=== PATIENT | male | born 1980 | race Caucasian/White ===

== ENCOUNTER 2025-04-22 07:47 | Inpatient (IN) | payer SELFPAY ==
[~2025-04-22] VITALS: Ht 175.3 cm; Wt 68.9 kg
[2025-04-22] VITALS (8 sets, daily range): BP systolic 114–129; BP diastolic 63–87; PULSE 69–86; RESP 0–15; TEMP 36.3–36.9; O2SAT 97–100
[2025-04-22] MEDS: ONDANSETRON HCL 4MG/2ML INJ IV ONE (08:32)
[2025-04-22] MEDS: MORPHINE SULFATE 4 MG/ML INJ (FOR IV/IM USE) IV ONE (08:33)
[2025-04-22] MEDS: LACTATED RINGERS 1,000 ML IV SCH (08:33)
[2025-04-22 08:35] LABS: HEMATOCRIT. 48.8 % (42.0-52.0); HEMOGLOBIN. 17.0 g/dL (14.0-18.0); MEAN PLATELET VOLUME 9.2 fl (7.4-10.4); PLATELET 298 x1000/uL (130-400); RED BLOOD CELL COUNT 5.73 mill/uL (4.7-6.1); RED CELL DISTRIBUTION WIDTH 12.9 % (11.6-14.6)
[2025-04-22 08:56] LABS: CREATININE 1.1 mg/dL (0.6-1.3)
[2025-04-22 08:57] LABS: UREA NITROGEN BLOOD 7 mg/dL (9-23)
[2025-04-22 08:58] LABS: ASPARTATE AMINOTRANSFERASE 17 IU/L (<34)
[2025-04-22 08:59] LABS: BILIRUBIN DIRECT 0.2 mg/dL (<=3.0); BILIRUBIN TOTAL 0.9 mg/dL (0.1-1.0); PROTEIN TOTAL 6.7 g/dL (6.0-8.3)
[2025-04-22 09:51] LABS: BAND% 27.0 % (1.0-6.0); EOSINOPHILS % MANUAL 1.0 % (0.0-5.0); LYMPHOCYTES % MANUAL 15.0 % (20.0-50.0); MONOCYTES % MANUAL 23.0 % (2.0-8.0); NEUTROPHILS % MANUAL 34.0 % (45.0-75.0)
[2025-04-22 09:52] LABS: PLATELET ESTIMATE NORMAL
[2025-04-22 09:58] LABS: TROPONIN I HIGH SENSITIVITY < 4 ng/L (3.0-53)
[2025-04-22] MEDS: ASPIRIN 325MG TABLET PO ONE (10:06)
[2025-04-22] MEDS: POTASSIUM CHLORIDE 20MEQ/PACKET PO ONE (10:06)
[2025-04-22] MEDS: KCL 20MEQ/100ML PREMIX 100 ML IV SCH ×2 (10:07→16:45)
[2025-04-22] MEDS ORDERED: IOHEXOL-300 100 ML BOTTLE ONE (10:50)
[2025-04-22] MEDS: MAGNESIUM 2 G PREMIX 50 ML IV ONE (11:09)
[2025-04-22 11:33] LABS: CLARITY URINE CLEAR (CLEAR); COLOR URINE YELLOW (YELLOW); GLUCOSE URINE NEGATIVE (NEGATIVE); KETONES URINE TRACE (NEGATIVE); LEUKOCYTE ESTERASE URINE NEGATIVE (NEGATIVE); NITRITE URINE NEGATIVE (NEGATIVE); OCCULT BLOOD URINE NEGATIVE (NEGATIVE); PH URINE 7.5 (4.5-8.0); PROTEIN URINE NEGATIVE (NEGATIVE); SPECIFIC GRAVITY URINE 1.060 (1.005-1.030); UROBILINOGEN URINE 0.2 E.U./dL (0.2-1.0)
[2025-04-22] MEDS ORDERED: ONDANSETRON HCL 4MG/2ML INJ IV PRN (15:30)
[2025-04-22] MEDS ORDERED: ACETAMINOPHEN 325MG TABLET PO PRN (15:30)
[2025-04-22] MEDS: KETOROLAC 30MG/ML VIAL IV PRN (17:53)
[2025-04-22 22:48] LABS: FOLIC ACID (FOLATE) SERUM 11.65 ng/mL (>5.38)
[2025-04-23] VITALS (9 sets, daily range): BP systolic 111–130; BP diastolic 72–86; PULSE 65–83; RESP 11–21; TEMP 36.7–36.9; O2SAT 96–98
[2025-04-23] MEDS: PANTOPRAZOLE SODIUM 40 MG/VIAL IV SCH (09:36)
[2025-04-23 10:19] LABS: HEMATOCRIT. 44.3 % (42.0-52.0); HEMOGLOBIN. 15.3 g/dL (14.0-18.0); MEAN PLATELET VOLUME 8.5 fl (7.4-10.4); PLATELET 274 x1000/uL (130-400); RED BLOOD CELL COUNT 5.17 mill/uL (4.7-6.1); RED CELL DISTRIBUTION WIDTH 13.1 % (11.6-14.6)
[2025-04-23 10:33] LABS: CREATININE 1.0 mg/dL (0.6-1.3); UREA NITROGEN BLOOD 6 mg/dL (9-23)
[2025-04-23] MEDS: POTASSIUM CHLORIDE 20MEQ TABLET SR PO NR (12:52)
[2025-04-23 16:38] LABS: EOSINOPHILS % MANUAL 1.0 % (0.0-5.0); LYMPHOCYTES % MANUAL 20.0 % (20.0-50.0); MONOCYTES % MANUAL 16.0 % (2.0-8.0); NEUTROPHILS % MANUAL 63.0 % (45.0-75.0)
[2025-04-23 16:39] LABS: PLATELET ESTIMATE NORMAL
== END 2025-04-23 15:50 | disposition home or self-care (01) | DRG 249 ==
LOC: ER 07:47 → EDBEDREQTM 09:27 → EDBEDREQ 09:27 → EDBEDREQSVC 09:27 → 5EST 09:34 → EDBEDREQSVC 09:35 → EDBEDREQTM 09:35 → ENRESERV 11:31
PROVIDERS: ADMIT Internal Medicine; ATTEND Internal Medicine
DX: K52.9 Noninfective gastroenteritis and colitis, unspecified (principal); E87.1 Hypo-osmolality and hyponatremia; E87.6 Hypokalemia; F12.90 Cannabis use, unspecified, uncomplicated; F15.90 Other stimulant use, unspecified, uncomplicated; F17.210 Nicotine dependence, cigarettes, uncomplicated; Z79.82 Long term (current) use of aspirin
CPT/HCPCS: 36415; 74177; 80048; 80076; 81003; 82746; 83540; 83550; 84132; 84425; 84484; 85025; 85044; 87493; 93005; 96361; 96374; 96375; 99291; J1885; J2270; J2405; J2470; J3475; J3480; Q9967